=== PATIENT | male | born 1940 | race Caucasian/White ===

== ENCOUNTER 2020-12-01 09:52 | Emergency (ER) | payer OTHER ==
--- OUTSIDE RECORDS SUMMARY | 2020-12-01 09:55 | XMS REPORT | Continuity of Care Document ---
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 Social History Social Habit Start Date Stop Date Quantity Comments Source Sex Assigned At [facility] Tobacco use and 2017-12-18 2017-12-18 Never used [facility] - exposure 00:00:00 00:00:00 [facility] Alcohol intake 2017-12-18 2017-12-18 Current [facility] - 00:00:00 00:00:00 non-drinker of [facility] nter alcohol (finding) History of 1982-09-13 Current smoker [facility] - tobacco use 00:00:00 [facility] Smoking Status Start Date Stop Date Source Former smoker 2017-12-18 00:00:00 2017-12-18 00:00:00 [facility] Medications Ordered Filled Start Stop Current Ordering Indication Dosage Frequency Signature Comments Components Source Medication Medication Date Date Medication? Clinician (SIG) Name Name metFORMIN Yes 1000mg Take 1,[address] [facility] (GLUCOPHAGE 2-05 mg by [facility] - ) 1000 MG 12:29: mouth 2 Medic al tablet 44 (two) Center times daily with breakfast and dinner. aspirin 81 Yes 81mg QD Take [address] MG EC 2-05 by mouth [facility] - tablet 12:29: daily. Medical 44 [place] b complex 0 Yes 1{tbl} QD Take [address] [facility] vitamins 2-05 tablet by [facility] - tablet 12:29: mouth Medical 44 daily. [place] atorvastati Yes 40mg QD Take [address] [address] n (LIPITOR) 2-05 by mouth [facility] s - 40 MG 12:29: daily. Medical tablet 44 [place] canaglifloz Yes 100mg QD Take [address] in 2-05 mg by [facility] - (INVOKANA) 12:29: mouth Medica l 100 mg 44 daily. [place] tablet coenzyme Yes 100mg QD Take [address] Q10 100 mg 2-05 mg by [facility] - capsule 12:29: mouth Medical 44 daily. [place] LUTEIN ORAL Yes Take by [facility] 2-05 mouth. [facility] - 12:29: Medical [address] [place] [address] bimatoprost 0 Yes 1[drp] QD [address] (LUMIGAN) 2-05 nightly. [facility] - 0.03 % 12:29: Medical ophthalmic 44 [place] drops brimonidine 0 Yes 1[drp] Q.5D [address] [facility] [address] -timolol 2-05 (two) [facility] - (COMBIGAN) 12:29: times Medica l 0.2-0.5 % 44 daily. [place] ophthalmic solution guaiFENesin Yes Take by [facility] (MUCINEX) 2-05 mouth. [facility] - 1,200 mg 12:29: Medical Ta12 44 [place] Procedures This patient has no known procedures. Plan of Care Planned Activity Planned Date Details Comments Source Future Scheduled 2020-07-[address] [facility] - Test 00:00:00 (#1) [code = [facility] INFLUENZA VACCINE (#1)] Future Scheduled 2014-11-[address] [facility] [facility] - Test 00:00:00 WELLNESS (YEAR 2 or Medical Center FIRST YEAR if no IPPE) [code = MEDICARE ANNUAL WELLNESS (YEAR 2 or FIRST YEAR if no IPPE)] Results Test Description Test Time Test Comments Results Result Comments Source POCT-GLUCOSE METER 2017-12-18 10:28:00 Test Item Value Reference Range Interpretation Comme nts POC-GLUCOSE METER (ALMAS) (test 120 mg/dL 70-110 H TESTED AT [facility] 7200 code = 1538) [facility] [address]
--- OUTSIDE RECORDS SUMMARY | 2020-12-01 09:55 | XMS REPORT | Clinical Summary ---
:1940 Author Organization [facility] Address [address] [place] [address] Care Team Providers Name Role Phone MD Margoth Primary Care Provider Allergies No Known Allergies Medications Medication Sig Dispensed Refills Start Date End Date Status metFORMIN (GLUCOPHAGE) Take 1,000 mg by 0 Active 1000 MG tablet mouth 2 (two) times daily with breakfast and dinner. aspirin 81 MG EC Take 81 mg by 0 Active tablet mouth daily. b complex vitamins Take 1 tablet by 0 Active tablet mouth daily. atorvastatin (LIPITOR) Take 40 mg by 0 Active 40 MG tablet mouth daily. canagliflozin Take 100 mg by 0 A ctive (INVOKANA) 100 mg mouth daily. tablet coenzyme Q10 100 mg Take 100 mg by 0 Active capsule mouth daily. LUTEIN ORAL Take by mouth. 0 Act roberta bimatoprost (LUMIGAN) 1 drop nightly. 0 Active 0.03 % ophthalmic drops brimonidine-timolol 1 drop 2 (two) 0 Active (COMBIGAN) 0.2-0.5 % times daily. ophthalmic solution guaiFENesin (MUCINEX) Take by mouth. 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 Social History Tobacco Use Types Packs/Day Years Used Date Former Smoker Quit: 09/13/19 82 Smokeless Tobacco: Never Used Alcohol Use Drinks/Week oz/Week Comments No Sex Assigned at Date Recorded Not on file Last Filed Vital Signs Not on file Plan of Treatment Health Maintenance Due Date Last Done Comments MEDICARE ANNUAL WELLNESS (YEAR 2 or FIRST YEAR if no 11/14/2014 IPPE) INFLUENZA VACCINE (#1) 2020 07/24/2017 PNEUMOCOCCAL 65+ YRS Completed 07/24/2017 Implants Implanted Type Area Melting Operator Device Shelf Model / Identifier Expiration Serial / Date Lot Shunt Xen 45 Gel Glcoma Trnt 5513-001 - [id number] Ophthalmology Rig ht: LEEANNE 12/13/2019 5513-001 / Implanted: Qty: 1 on 12/18/2017 by Thomas He MD at [facility] Eye [id number] / [id number] Results Not on fileafter 12/01/2019 Insurance Payer Benefit Plan / Subscriber ID Effective Dates Phone Addre ss Type Group AETNA - AETNA MEDICARE [id number] 2013-Sandra [phone] [address] MEDICARE MGD HMO POS PPO t 2 [id number] [place] [address] (Home) [place] [address]
[2020-12-01] MEDS ORDERED: TAMSULOSIN 0.4 MG SR CAP ONE (10:36)
[2020-12-01] MEDS ORDERED: CIPROFLOXACIN HCL 500 MG TAB ONE (10:36)
--- NOTE | 2020-12-01 10:49 | ER ---
Nurse's Notes [facility] Name: Royer Garcia Age: 80 yrs Sex: Male : 1940 Arrival Date: 12/01/2020 Time: 09:53 Bed 5 Private MD: Diagnosis: Retention of urine-pvr 1 liter Presentation: 12/01 10:02 Chief complaint: Patient states: I can't relieve my bladder. This happened to me in the ca1 beginning of October last year, they put a catheter in and I am seeing a Urologist. I have an appointment tomorrow in [place] with the urologist to do more tests. But I woke up this morning and I have not emptied my bladder, it's just dribble here and there. I just need a catheter put in so I can travel to [place]. Coronavirus screen: Client denies travel out of the [place] in the last 14 days. At this time, the client does not indicate any symptoms associated with coronavirus-19. Ebola Screen: Patient negative for fever greater than or equal to 101.5 degrees Fahrenheit, and additional compatible Ebola Virus Disease symptoms Patient denies exposure to infectious person. Patient denies travel to an Ebola-affected area in the 21 days before illness onset. No symptoms or risks identified at this time. Initial Sepsis Screen: Does the patient meet any 2 criteria? No. Patient's initial sepsis screen is negative. Does the patient have a suspected source of infection? No. Patient's initial sepsis screen is negative. Risk Assessment: Do you want to hurt yourself or someone else? Patient reports no desire to harm self or others. Onset of symptoms was December 01, 2020. 10:02 Method Of Arrival: Ambulatory ca1 10:02 Acuity: LIDIA 3 ca1 Historical: - Allergies: 10:06 No Known Allergies; ca1 - PMHx: 10:06 Diabetes; High Cholesterol; ca1 - PSHx: 10:06 triple bypass; Tonsillectomy; cyst removed from sacral area; ca1 - Immunization history:: Pneumococcal vaccine is up to date, Flu vaccine is up to date. - Social history:: Smoking status: Patient denies any tobacco usage or history of. Screenin:40 Abuse screen: Denies threats or abuse. Denies injuries from another. Nutritional iw screening: No deficits noted. Tuberculosis screening: No symptoms or risk factors identified. Fall Risk None identified. Assessment: 10:39 General: Appears in no apparent distress. Behavior is calm, cooperative. Pain: iw Complains of pain in suprapubic area. Neuro: Level of Consciousness is awake, alert, obeys commands, Oriented to person, place, time, situation, Moves all extremities. Full function. Cardiovascular: Patient's skin is warm and dry. Respiratory: Respiratory effort is even, unlabored, Respiratory pattern is regular, symmetrical. : Reports inability to void, since yesterday. Derm: Skin is intact, is fragile. Musculoskeletal: Range of motion: intact in all extremities. Vital Signs: 10:02 BP 173 / 98; Pulse 82; Resp 16 S; Temp 98.2; Pulse Ox 99% on R/A; Weight 65.77 kg (R); ca1 Height 5 ft. 8 in. (172.72 cm) (R); Pain 5/10; 10:02 Body Mass Index 22.05 (65.77 kg, 172.72 cm) ca1 ED Course: 09:53 Patient arrived in ED. as 10:05 Triage completed. ca1 10:06 Arm band placed on right wrist. ca1 10:15 Brad Balderas MD is Attending Physician. pito 10:16 Bladder scan completed. 957ml. Notified Dr. Balderas and Sarah, RN. ca1 10:19 Sarah Charlton, RN is Primary Nurse. iw 10:28 Monk cath inserted, using sterile technique, 16 Fr., by mt, balloon inflated, to em1 gravity drainage. 10:39 Patient has correct armband on for positive identification. iw 10:43 Dominik Cardenas MD is Referral Physician. pito 11:15 No provider procedures requiring assistance completed. Patient did not have IV access iw during this emergency room visit. Administered Medications: 10:23 Drug: Cipro 500 mg Route: PO; iw 10:24 Not Given (pt took this morning ): Flomax 0.4 mg PO once iw Outcome: 10:49 Discharge ordered by . pito 11:15 Discharged to home ambulatory, pt has follow up with his urologist tomorrow in [facility] pt placed in leg bag, given urinal to go home with 11:15 Condition: good 11:15 Discharge instructions given to patient, Instructed on follow up and referral plans. Demonstrated understanding of instructions, follow-up care, medications, Prescriptions given X 2. 11:16 Patient left the ED. iw Signatures: Brad Balderas MD MD cha Martinez, Sarah Agarwal, RN Neftaly Oro Cheryl RN RN ca1
--- NOTE | 2020-12-01 10:49 | EDPHYS ---
Physician Documentation [facility] Name: Royer Garcia Age: 80 yrs Sex: Male : 1940 Arrival Date: 12/01/2020 Time: 09:53 Bed 5 Private MD: Brad Vaughan HPI: 12/01 10:39 This 80 yrs old Male presents to ER via Ambulatory with complaints of Urinary pito Retention. 10:39 The patient presents with urinary symptoms, dribbling of urine, retention. Onset: The pito symptoms/episode began/occurred 1 day(s) ago. Modifying factors: The symptoms are alleviated by nothing, the symptoms are aggravated by nothing. Associated signs and symptoms: The patient has no apparent associated signs or symptoms. Severity of symptoms: At their worst the symptoms were moderate, in the emergency department the symptoms are unchanged. The patient has experienced similar episodes in the past, a few times. Historical: - Allergies: 10:06 No Known Allergies; ca1 - PMHx: 10:06 Diabetes; High Cholesterol; ca1 - PSHx: 10:06 triple bypass; Tonsillectomy; cyst removed from sacral area; ca1 - Immunization history:: Pneumococcal vaccine is up to date, Flu vaccine is up to date. - Social history:: Smoking status: Patient denies any tobacco usage or history of. ROS: 10:40 Constitutional: Negative for fever, chills, and weight loss, Eyes: Negative for injury, pito pain, redness, and discharge, ENT: Negative for injury, pain, and discharge, Neck: Negative for injury, pain, and swelling, Cardiovascular: Negative for chest pain, palpitations, and edema, Respiratory: Negative for shortness of breath, cough, wheezing, and pleuritic chest pain, Abdomen/GI: Negative for abdominal pain, nausea, vomiting, diarrhea, and constipation, Back: Negative for injury and pain, MS/Extremity: Negative for injury and deformity, Skin: Negative for injury, rash, and discoloration, Neuro: Negative for headache, weakness, numbness, tingling, and seizure, Psych: Negative for depression, anxiety, suicide ideation, homicidal ideation, and hallucinations, Allergy/Immunology: Negative for hives, rash, and allergies, Endocrine: Negative for neck swelling, polydipsia, polyuria, polyphagia, and marked weight changes, Hematologic/Lymphatic: Negative for swollen nodes, abnormal bleeding, and unusual bruising. 10:40 : Positive for urinary symptoms. Exam: 10:40 Constitutional: This is a well developed, well nourished patient who is awake, alert, pito and in no acute distress. Head/Face: Normocephalic, atraumatic. Eyes: Pupils equal round and reactive to light, extra-ocular motions intact. Lids and lashes normal. Conjunctiva and sclera are non-icteric and not injected. Cornea within normal limits. Periorbital areas with no swelling, redness, or edema. ENT: Nares patent. No nasal discharge, no septal abnormalities noted. Tympanic membranes are normal and external auditory canals are clear. Oropharynx with no redness, swelling, or masses, exudates, or evidence of obstruction, uvula midline. Mucous membranes moist. Neck: Trachea midline, no thyromegaly or masses palpated, and no cervical lymphadenopathy. Supple, full range of motion without nuchal rigidity, or vertebral point tenderness. No Meningismus. Chest/axilla: Normal chest wall appearance and motion. Nontender with no deformity. No lesions are appreciated. Cardiovascular: Regular rate and rhythm with a normal S1 and S2. No gallops, murmurs, or rubs. Normal PMI, no JVD. No pulse deficits. Respiratory: Lungs have equal breath sounds bilaterally, clear to auscultation and percussion. No rales, rhonchi or wheezes noted. No increased work of breathing, no retractions or nasal flaring. Abdomen/GI: Soft, non-tender, with normal bowel sounds. No distension or tympany. No guarding or rebound. No evidence of tenderness throughout. Back: No spinal tenderness. No costovertebral tenderness. Full range of motion. Skin: Warm, dry with normal turgor. Normal color with no rashes, no lesions, and no evidence of cellulitis. MS/ Extremity: Pulses equal, no cyanosis. Neurovascular intact. Full, normal range of motion. Neuro: Awake and alert, GCS 15, oriented to person, place, time, and situation. Cranial nerves II-XII grossly intact. Motor strength 5/5 in all extremities. Sensory grossly intact. Cerebellar exam normal. Normal gait. Psych: Awake, alert, with orientation to person, place and time. Behavior, mood, and affect are within normal limits. 10:40 : CVA tenderness, is absent, Male external genitalia: normal, Bladder: distension, that is moderate. Vital Signs: 10:02 BP 173 / 98; Pulse 82; Resp 16 S; Temp 98.2; Pulse Ox 99% on R/A; Weight 65.77 kg (R); ca1 Height 5 ft. 8 in. (172.72 cm) (R); Pain 5/10; 10:02 Body Mass Index 22.05 (65.77 kg, 172.72 cm) ca1 MDM: 10:15 Patient medically screened. [facility] 10:42 Data reviewed: vital signs, nurses notes, lab test result(s), urinalysis. [facility] 12/01 10:16 Order name: Monk: note pvr; Complete Time: 10:28 [facility] 12/01 10:50 Order name: Leg Bag; Complete Time: 11:11 [facility] Administered Medications: 10:23 Drug: Cipro 500 mg Route: PO; iw 10:24 Not Given (pt took this morning ): Flomax 0.4 mg PO once iw Disposition: 12/01/20 10:49 Discharged to Home. Impression: Retention of urine - pvr 1 liter. - Condition is Stable. - Discharge Instructions: Monk Catheter Care, Adult, Acute Urinary Retention, Male, [id number]. - Prescriptions for Cipro 250 mg Oral Tablet - take 1 tablet by ORAL route every 12 hours; 14 tablet. Flomax 0.4 mg Oral Capsule, Sust. Release 24 hr - take 1 capsule by ORAL route once daily 1/2 hour following the same meal each day; 30 capsule. - Medication Reconciliation Form, Thank You Letter, Antibiotic Education, Prescription Opioid Use form. - Follow up: Private Physician; When: 2 - 3 days; Reason: Recheck today's complaints, Continuance of care, Re-evaluation by your physician. Follow up: Dominik Cardenas MD; When: 1 - 2 days; Reason: Recheck today's complaints, Continuance of care, Re-evaluation by your physician. - Problem is new. - Symptoms have improved. Signatures: Brad Balderas MD MD cha Williams, Irene, RN RN iw Acob, NIURKA Suero RN ca1 Corrections: (The following items were deleted from the chart) 11:16 10:49 12/01/2020 10:49 Discharged to Home. Impression: Retention of urine - pvr 1 iw liter. Condition is Stable. Forms are Medication Reconciliation Form, Thank You Letter, Antibiotic Education, Prescription Opioid Use. Follow up: Private Physician; When: 2 - 3 days; Reason: Recheck today's complaints, Continuance of care, Re-evaluation by your physician. Follow up: Dominik Cardenas; When: 1 - 2 days; Reason: Recheck today's complaints, Continuance of care, Re-evaluation by your physician. Problem is new. Symptoms have improved. pito
[2020-12-01 11:22] VITALS: BP 173/98; TEMP 98.2; O2SAT 99
== END 2020-12-01 11:16 | disposition home or self-care (01) ==
LOC: ER 09:52
DX: R33.9 Retention of urine, unspecified (principal); Z95.1 Presence of aortocoronary bypass graft
CPT/HCPCS: 51702; 99284